=== PATIENT | female | born 1955 | race African-American/Black ===

== ENCOUNTER 2017-02-12 22:59 | Emergency (ER) | payer BC, OTHER ==
[2017-02-12 23:31] VITALS: BP 142/73; PULSE 78; TEMP 98.1; BMI 34.8
--- NOTE | 2017-02-13 00:35 | PDOC ---
History of Present Illness - General History Source: Patient, Old Records Exam Limitations: No Limitations - History of Present Illness Initial Comments: 02/13/17 00:43 The patient is a 60 year old female with a significant past medical history of hypertension and recent colonoscopy (01/31/17) who presents to the emergency department with nausea and vomiting for 6 hours. The patient states that since her surgery she frequently has indigestion in the evening regardless of her daily eating habits. On Saturday she saw her Doctor who altered her medications. Since her evening episodes of indigestion and nausea have become worse. The patient states that her episodes of vomiting have been clear. She denies any chest pain, shortness of breath, abnormal bowel movements, or dysuria. <Davonte Khalil - Last Filed: 02/13/17 00:43> - General History Source: Patient <Maximus Khan - Last Filed: 02/13/17 19:50> - General Chief Complaint: Nausea Stated Complaint: NAUSEA/VOMITING Time Seen by Provider: 02/13/17 00:30 Past History <Davonte Khalil - Last Filed: 02/13/17 00:43> - Past Medical History Anemia: No Asthma: No Cardiac Disorders: No COPD: No CHF: No DVT: No Diabetes: No HTN: Yes Hypercholesterolemia: Yes - Surgical History Cholecystectomy: Yes - Immunization History Immunization Up to Date: No - Suicide/Smoking/Psychosocial Hx Smoking Status: Yes Smoking History: Never smoked Have you smoked in the past 12 months: No Number of Cigarettes Smoked Daily: 0 Information on smoking cessation initiated: No Hx Alcohol Use: No Drug/Substance Use Hx: No Substance Use Type: None <Maximus Khan - Last Filed: 02/13/17 19:50> - Past Medical History Allergies/Adverse Reactions: Allergies Allergy/AdvReac Type Severity Reaction Status Date / Time No Known Allergies Allergy Verified 02/12/17 23:31 Home Medications: Ambulatory Orders Amlodipine Besylate [Norvasc] 5 mg PO DAILY 06/12/12 Metoprolol Tartrate [Lopressor] 25 mg PO DAILY 06/12/12 Naproxen [Naprosyn] 500 mg PO BID PRN #30 tablet 06/12/12 Pantoprazole Suspension [Protonix] 40 mg PO DAILY 06/12/12 Amlodipine Besylate [Norvasc -] 5 mg PO DAILY #30 tablet 10/04/14 Cephalexin [Keflex] 500 mg PO TID #30 capsule 05/17/15 Ondansetron [Zofran *Odt*] 4 mg SL TID #30 od.tablet 02/13/17 Review of Systems - Review of Systems Able to Perform ROS?: Yes Comments:: 02/13/17 00:43 CONSTITUTIONAL: Absent: fever, no chills, no fatigue EYES: Absent: visual changes ENT: Absent: ear pain, no sore throat CARDIOVASCULAR: Absent: chest pain, no palpitations RESPIRATORY: Absent: cough, no SOB GI: (+) Indigestion, nausea, vomiting, Absent: no constipation, no diarrhea GENITOURINARY: Absent: dysuria, no frequency, no hematuria MUSCULOSKELETAL: Absent: back pain, no arthralgia, no myalgia SKIN: Absent: rash <Davonte Khalil - Last Filed: 02/13/17 00:43> *Physical Exam - Vital Signs Last Vital Signs Temp Pulse Resp BP Pulse Ox 98.1 F 78 18 142/73 98 02/12/17 23:28 02/12/17 23:28 02/12/17 23:28 02/12/17 23:28 02/12/17 23:28 - Physical Exam Comments: 02/13/17 00:43 GENERAL: Well-appearing, well-nourished. No apparent distress. HEENT: Normocephalic, atraumatic. PERRL, EOM intact. CARDIOVASCULAR: Normal S1, S2. Regular rate and rhythm. PULMONARY: Clear to auscultation bilaterally. ABDOMEN: (+) Hyperactive bowel sounds. Soft, non-distended, non-tender. EXTREMITIES: Normal ROM in all four extremities. No gross deformities. SKIN: Warm, dry. No rash NEUROLOGICAL: No focal neurological deficits. <Davonte Khalil - Last Filed: 02/13/17 00:43> - Vital Signs Last Vital Signs Temp Pulse Resp BP Pulse Ox 98.1 F 78 18 142/73 98 02/12/17 23:28 02/12/17 23:28 02/12/17 23:28 02/12/17 23:28 02/12/17 23:28 <Maximus Khan - Last Filed: 02/13/17 19:50> ED Treatment Course - LABORATORY CBC & Chemistry Diagram: 02/13/17 00:52 02/13/17 02:00 <Maximus Khan - Last Filed: 02/13/17 19:50> Medical Decision Making - Medical Decision Making 02/13/17 02:59 Dr. Khan: The scribe's documentation has been prepared under my direction and personally reviewed by me in its entirery. I confirm that the note above accurately reflects all work, treatment, procedures, and medical decision making performed by me. patient now feels better. all labs are stable. Patient will be discharged primary care doctor. Rx Zofran sent to pharmacy <Maximus Khan - Last Filed: 02/13/17 19:50> *DC/Admit/Observation/Transfer - Attestations Scribe Attestion: 02/13/17 00:43 Documentation prepared by Davonte Khalil, acting as medical bill processor for Maximus Khan DO. <Davonte Khalil - Last Filed: 02/13/17 00:43> - Discharge Dispostion Admit: No <Maximus Khan - Last Filed: 02/13/17 19:50> Diagnosis at time of Disposition: Nausea & vomiting - Discharge Dispostion Disposition: HOME Condition at time of disposition: Stable - Prescriptions Prescriptions: Ondansetron [Zofran *Odt*] 4 mg SL TID #30 od.tablet - Referrals Referrals: STAFF,NOT ON [Primary Care Provider] - Nathaniel Castrejon MD [Staff Physician] - - Patient Instructions Printed Discharge Instructions: Nausea and Vomiting-Adult - Post Discharge Activity Forms/Work/School Notes: Back to Work
[2017-02-13] MEDS ORDERED: FAMOTIDINE 20 MG/50 ML IVPB 20 MG in PREMIX 50 IVPB ONE (00:36)
[2017-02-13] MEDS ORDERED: SODIUM CHLORIDE 1,000 ML IV STA (00:36)
[2017-02-13] MEDS ORDERED: ONDANSETRON 4 MG/2 ML VIAL IVPUSH STA (00:36)
[2017-02-13] MEDS ORDERED: FAMOTIDINE 20 MG/50 ML IVPB 20 MG/50 ML MG IVPB ONE (00:51)
[2017-02-13 00:59] LABS: BASOPHIL 1.1 % (0-2.0); EOSINOPHIL 1.1 % (0-4.5); MCH 25.9 pg (25.7-33.7); MEAN CELL VOLUME 78.4 fl (80-96); NEUTROPHILS 57.3 % (42.8-82.8); RDW 15.2 % (11.6-15.6); WHITE BLOOD COUNT 6.4 K/mm3 (4.0-10.0)
[2017-02-13 01:15] LABS: INR 0.96 (0.82-1.09); PROTHROMBIN TIME (PATIENT) 10.8 SEC (9.98-11.88)
[2017-02-13 02:40] LABS: ANION GAP 7 (8-16); CO2 31 mmol/L (21-32); CREATININE 0.8 mg/dL (0.55-1.02); GLUCOSE,RANDOM 112 mg/dL (74-106); MAGNESIUM 2.2 mg/dL (1.8-2.4)
[2017-02-13 02:50] LABS: CPK 148 IU/L (26-192); TROPONIN I < 0.02 ng/ml (0.00-0.05)
--- NOTE | 2017-02-13 12:10 | EKG ---
Test Reason : Blood Pressure : / mmHG Vent. Rate : 061 BPM Atrial Rate : 061 BPM P-R Int : 198 ms QRS Dur : 088 ms QT Int : 440 ms P-R-T Axes : 051 024 006 degrees QTc Int : 442 ms NORMAL SINUS RHYTHM NONSPECIFIC T WAVE ABNORMALITY ABNORMAL ECG WHEN COMPARED WITH ECG OF 04-OCT-2014 20:32, NONSPECIFIC T WAVE ABNORMALITY, IMPROVED IN ANTERIOR LEADS Confirmed by MAX CHAN, ROYCE ([id number]) on 02/13/2017 12:09:58 PM Referred By: Confirmed By:ROYCE SANTANA MD
== END 2017-02-13 03:06 | disposition home or self-care (01) ==
LOC: JER 22:59
PROC: 3E033GC Introduction of Other Therapeutic Substance into Peripheral Vein, Percutaneous Approach (ICD-10-PCS; principal; 2017-02-12)
DX: R11.2 Nausea with vomiting, unspecified (principal); I10 Essential (primary) hypertension; E78.00 Pure hypercholesterolemia, unspecified; Z98.890 Other specified postprocedural states
CPT/HCPCS: 36415; 80048; 82550; 83690; 83735; 84484; 85025; 85610; 93005; 93010; 99282-25